=== PATIENT | male | born 1945 | race Caucasian/White ===

== ENCOUNTER 2018-04-20 09:04 | Outpatient (CLI) | payer MEDICARE, BC ==
--- NOTE | 2018-04-20 13:03 | MRI ---
MRI THORACIC SPINE WITH AND WITHOUT CONTRAST: Date: 04/20/18 CLINICAL HISTORY: Spine screening for history of prostate malignancy. Evaluate for metastatic disease. No prior imaging comparisons are available. FINDINGS: There is a generalized mild marrow heterogeneity throughout the thoracic spine. No discrete marrow ed nichelle. There are no focal enhancing marrow lesions. No pathologic intramedullary enhancement or evidenc e of mass-producing enhancement within the vertebral canal. Expected for patient's age, multilevel di sc osteophyte formation throughout the thoracic spine is present. The degree of patient motion does l imit evaluation of multilevel degenerative changes, although there is evidence of mild multilevel delisa tral canal stenosis throughout the thoracic spine. Mild multilevel bilateral thoracic spine neural fo raminal narrowing also present on the basis of disc osteophyte formation. Incidental note of cervical spondylosis at multiple levels, incompletely assessed on the basis of this exam. C&-T1 level reveals a right asymmetric disc osteophyte with moderate narrowing of the central canal. IMPRESSION: 1. No MR evidence to confirm metastatic disease of the thoracic spine. 2. Age expected multilevel degenerative change incidentally noted. POS: CHAYA
[2018-04-20] MEDS ORDERED: Gadobenate Dimeglumine 529 MG/1 ML (20ML VIAL) ONE (13:44)
== END 2018-04-20 09:05 | disposition home or self-care (01) ==
LOC: TBSIIMAG 09:04
DX: C61 Malignant neoplasm of prostate (principal); M47.894 Other spondylosis, thoracic region
CPT/HCPCS: 72157; 82565; A9579

== ENCOUNTER 2019-02-07 09:11 | Outpatient (CLI) | payer MEDICARE, BC ==
--- NOTE | 2019-02-07 12:09 | MRI ---
MRI RIGHT SHOULDER: 02/07/2019 PROVIDED CLINICAL HISTORY: Right shoulder pain. COMPARISON: None. FINDINGS: Postoperative changes of prior rotator cuff repair are demonstrated. The components of the rotator c uff appear intact. The longhead biceps tendon appears normally located. There is increased signal i ntensity on fluid sensitive sequences, involving the genu of the longhead biceps tendon, that may ref lect tendinosis and/or partial-thickness, nonattenuating interstitial tearing. The glenoid labrum and glenohumeral articular cartilage are suboptimally evaluated in the absence of joint distention but appear grossly normal. The amount of fluid within the glenohumeral joint appear s physiologic. There is greater than physiologic subacromial, subdeltoid bursal fluid. Rotator cuff muscular volume appears preserved. Acromioclavicular joint osteoarthrosis is demonstrat ed, without significant mass effect upon the subjacent supraspinatus. No focal concerning regional m arrow or muscular signal abnormality is evident. IMPRESSION: 1. Tendinosis and/or nonattenuating, partial-thickness, interstitial tearing involving the genu of t he longhead biceps tendon. 2. Postoperative changes of rotator cuff repair without evidence for rotator cuff re-tear. 3. [id number] subacromial, subdeltoid bursal fluid, which may reflect bursitis. POS: C
== END 2019-02-07 09:12 | disposition home or self-care (01) ==
LOC: TBSIIMAG 09:11
DX: M19.011 Primary osteoarthritis, right shoulder (principal); S46.111A Strain of muscle, fascia and tendon of long head of biceps, right arm, initial encounter; M75.81 Other shoulder lesions, right shoulder; Z98.890 Other specified postprocedural states

== ENCOUNTER 2019-03-10 09:19 | Outpatient (CLI) | payer MEDICARE, BC ==
--- NOTE | 2019-03-10 10:01 | RAD ---
6 views of cervical spine: 03/10/2019 COMPARISON: None HISTORY: Neck pain radiating to the right arm for 6 weeks, radiculopathy FINDINGS: 6 images of the cervical spine provided. There is disc space narrowing and degenerative end plate change with anterior osteophyte formation at C5-6 and to a lesser degree, C4-5. No anterolisthesis or retrolisthesis is seen on flexion or extension imaging. The C6-7 and C7-T1 leve ls are not well visualized on the flexion and extension views. Neutral swimmer's view demonstrates normal alignment at the cervicothoracic junction. Open-mouth odontoid view demonstrates a normal-appearing dens and C1-2 articulation. Mild bilateral mid cervical spine facet and uncovertebral osteophyte formation. No prevertebral soft tissue swelling. No displaced fracture seen. IMPRESSION: Multilevel degenerative changes detailed above.
--- NOTE | 2019-03-10 10:53 | MRI ---
Cervical spine MRI without contrast: 03/10/2019 COMPARISON: None HISTORY: Neck pain with right upper extremity radiculopathy TECHNIQUE: Multiplanar multisequence MR imaging of the cervical spine without contrast FINDINGS: The sagittal STIR imaging demonstrates no focal area of osseous marrow edema. There is no anterolisthesis or retrolisthesis noted within the cervical spine. There is moderate degenerative change at the atlantoaxial interspace. C2-3: Disc space narrowing disc desiccation and mild disc bulge present with partial effacement of th e ventral thecal sac and mild central canal stenosis. Mild facet and uncovertebral osteophyte formation noted bilaterally with no neural foraminal stenosis. C3-4: Disc space narrowing and disc desiccation noted with disc bulge and central annular tear effaci ng the ventral thecal sac and abutting the ventral aspect of the cord with a moderate degree of central canal stenosis. On the basis of facet and uncovertebral osteophyte formation there is mild bi lateral neural foraminal stenosis, left greater than right. C4-5: There is disc space narrowing and disc desiccation with disc bulge and a central annular tear w ith associated small central disc protrusion. There is effacement of the ventral thecal sac with a moderate degree of central canal stenosis. Bilateral facet and uncovertebral osteophyte formation not ed, left greater than right, with no significant neural foraminal stenosis on either side. C5-6: There is disc space narrowing and disc desiccation with disc bulge effacing the ventral thecal sac and leading to a mild/moderate degree of central canal stenosis. There is prominent bilateral facet and uncovertebral osteophyte formation, right greater than left. Moderate left and moderate/sev ere right neural foraminal stenosis noted. C6-7: There is disc space narrowing and disc desiccation with disc bulge effacing the ventral thecal sac and causing a mild/moderate degree of central canal stenosis. Moderate bilateral facet hypertrophy and hypertrophy of the uncovertebral joints with moderate bilateral neural foraminal sten osis. C7-T1: There is disc space narrowing disc desiccation and disc bulge with mild central canal stenosis . Mild bilateral facet hypertrophy. Mild left neural foraminal stenosis. No significant right neural foraminal stenosis. No focal area of abnormal signal intensity is identified within the cervical cord. IMPRESSION: Multilevel degenerative change within the cervical spine as detailed above.
== END 2019-03-10 09:20 | disposition home or self-care (01) ==
LOC: TBSIIMAG 09:19
PROVIDERS: ATTEND Neurological Surgery
DX: M54.2 Cervicalgia (principal); M47.812 Spondylosis without myelopathy or radiculopathy, cervical region; M47.813 Spondylosis without myelopathy or radiculopathy, cervicothoracic region
CPT/HCPCS: 72050; 72141

== ENCOUNTER 2020-07-26 07:41 | Outpatient (CLI) | payer MEDICARE, BC ==
--- NOTE | 2020-07-26 08:40 | MRI ---
MR of the left shoulder without contrast INDICATION: Left shoulder pain. Evaluate for rotator cuff tear TECHNIQUE: Sagittal T1, axial and coronal PD fat sat, sagittal and coronal T2 fat sat images were obt ained of the left shoulder. COMPARISON: None. FINDINGS: Motion artifact limits image detail. Rotator cuff: There is a full-thickness tear involving the anterior and mid supraspinatus at the foot print measuring 0.8 x 1.4 cm in its greatest mediolateral and AP dimensions respectively. There is a partial-thickness, articular surface extension into the anterior and mid infraspinatus at the footp rint with delamination extending up to the muscular tendinous junction of the infraspinatus. The teres minor and subscapularis remain intact; however, there is moderate tendinosis of the subscapular is. No rotator cuff muscular atrophy is evident. Glenohumeral joint: Articular cartilage is intact. Glenoid labrum: There is a SLAP tear extending from approximately 3 to 9:00 position with tear extens ion into the biceps anchor complex and proximal long head of biceps tendon. Biceps tendon and biceps anchor: Tear as above. There is moderate tendinosis of the intra-articular b iceps tendon. The biceps tendon is located within the bicipital groove. Acromion clavicular joint: Moderate AC joint osteoarthrosis Subacromial subdeltoid space: There is a moderate fluid in the subacromial subdeltoid bursa. Axillary region: No lymphadenopathy. Surrounding shoulder musculature: Normal. No evidence of atrophy or strain. IMPRESSION: 1. Complete, partial width tear involving the anterior mid supraspinatus at the footprint with partia l thickness articular surface tear extension into the anterior mid infraspinatus with a delaminating component extending up the infraspinatus tendon to the muscular tendinous junction. 2. SLAP tear with tear extension into the biceps anchor complex and proximal long head of the biceps tendon. 3. Moderate biceps tendinosis.
== END 2020-07-26 07:42 | disposition home or self-care (01) ==
LOC: TBSIIMAG 07:41
DX: M25.511 Pain in right shoulder (principal)

== ENCOUNTER 2022-09-17 08:29 | Outpatient (CLI) | payer MEDICARE, BC ==
[2022-09-17] MEDS ORDERED: Magnevist 469MG/ML 20 ML VIAL ONE (12:40)
== END 2022-09-17 08:30 | disposition home or self-care (01) ==
LOC: TBSIIMAG 08:29
PROVIDERS: ATTEND Internal Medicine
DX: K86.2 Cyst of pancreas (principal)
CPT/HCPCS: 74183; 82565; A9579